=== PATIENT | male | born 1970 ===

== ENCOUNTER 2022-04-19 15:53 | Inpatient (IN) ==
[2022-04-19] MEDS ORDERED: LEVALBUTEROL 1.25 MG/3 ML NEB RESP TX ONE (15:56)
[2022-04-19] MEDS ORDERED: LEVOFLOXACIN 750 MG TABLET PO STA (15:57)
[2022-04-19] MEDS ORDERED: MAGNESIUM SULF RIDER 2 GM/50 ML PREMIX IV STA (15:57)
[2022-04-19] MEDS ORDERED: methylPREDNISolone SOD SUC 125 MG/2 ML VIAL IV STA (15:57)
[2022-04-19] MEDS ORDERED: ALBUTEROL NEB SOLN 5 MG/ML 20 ML/BOTTLE CONT NEB SCH (16:00)
[2022-04-19 16:03] LABS: Basophils % 0.2 % (0.0-0.8); Eosinophils # 0.1 10*3/uL (0.0-0.87); Eosinophils % 0.3 % (0.00-10.9); Hematocrit 47.2 VOL% (42.0-52.0); Hemoglobin 16.7 GM/DL (14.0-18.0); Immature Granulocytes % 0.6 %; Immature Granulocytes Absolute 0.11 #; Lymphocytes # 6.6 10*3/uL (1.4-4.0); Lymphocytes % 35.6 % (21.2-54.2); Mean Corpuscular HGB Conc 35.4 GM/DL (32-36); Mean Corpuscular Volume 89.1 FL (87-102); Monocytes # 1.4 10*3/uL (0.11-0.8); Monocytes % 7.6 % (1.7-12.7); Neutrophils % 55.7 % (38.7-73.9); Platelet Count 204 T/CUMM (130-400); Red Cell Distribution Width 12.5 % (9.3-17.3); White Blood Count 18.6 T/CUMM (4-12)
[2022-04-19] MEDS ORDERED: ALBUTEROL 2.5 MG/3 ML NEB RESP TX ONE (16:10)
[2022-04-19 16:25] LABS: Arterial Base Excess iSTAT -1 MMOL/L (-2.5-2.5); Arterial Bicarbonate iSTAT 24.1 MMOL/L (20-26); Arterial O2 Saturation iSTAT 100 % (95-100); Arterial PCO2 iSTAT 42 MM HG (35-48); Arterial PO2 iSTAT 201 MM HG (80-95); Arterial Total CO2 iSTAT 25 MMO/L (23-27); Arterial pH iSTAT 7.365 (7.35-7.45)
[2022-04-19 16:25] LABS: Albumin 4.1 G/DL (3.4-5.0); Bilirubin,Total 0.5 MG/DL (0.20-1.00); Osmolality,Calculated 282.3 MOS/KG (273-304); Potassium 4.2 MMOL/L (3.5-5.1); Total Protein 8.1 G/DL (6.4-8.2)
[2022-04-19 16:28] LABS: Band Neutrophils 1 % (0-10); Lymphocytes 39 % (20-55); Total Cells Counted 100
[2022-04-19 16:29] LABS: Atypical Lymphocytes Few; Platelet Estimate Normal
[2022-04-19] MEDS ORDERED: LEVALBUTEROL 0.63 MG/3 ML NEB RESP TX STA (16:48)
[2022-04-19] MEDS ORDERED: ONDANSETRON 4 MG/2 ML VIAL IV PRN (17:40)
[2022-04-19] MEDS ORDERED: ALBUTEROL 2.5 MG/3 ML NEB RESP TX PRN (17:40)
[2022-04-19] MEDS ORDERED: PANTOPRAZOLE 40 MG VIAL IV SCH (18:00)
[2022-04-19] MEDS: ALBUTEROL/IPRATROPIUM 3 ML NEB RESP TX SCH ×2 (19:09→22:33)
[2022-04-19 20:03] LABS: Barbiturates Screen,Urine Negative (Negative); Benzodiazepines Screen,Urine Negative (Negative); Cannabinoid Screen,Urine Negative (Negative); Opiate Screen,Urine Negative (Negative); Phencyclidine Screen,Urine Negative (Negative)
[2022-04-19 20:39] VITALS: BP 140/87
[2022-04-19] MEDS ORDERED: cefTRIAXone 1,000 MG in SODIUM CHLORIDE 0.9% 100 ML IV SCH (21:00)
[2022-04-19] MEDS: methylPREDNISolone SOD SUC 40 MG/1 ML VIAL IV SCH (23:31)
[2022-04-20] MEDS: ALBUTEROL/IPRATROPIUM 3 ML NEB RESP TX SCH ×3 (02:24→11:08)
[2022-04-20 05:19] LABS: Albumin 3.8 G/DL (3.4-5.0); Bilirubin,Total 0.4 MG/DL (0.20-1.00); Calcium 9.4 MG/DL (8.5-10.1); Osmolality,Calculated 281.5 MOS/KG (273-304); Potassium 4.2 MMOL/L (3.5-5.1); Thyroid Stimulating Hormone 0.412 uIU/ml (0.358-3.74); Total Protein 7.4 G/DL (6.4-8.2)
[2022-04-20] MEDS: methylPREDNISolone SOD SUC 40 MG/1 ML VIAL IV SCH ×2 (05:26→12:03)
[2022-04-20 05:29] LABS: Arterial Base Excess iSTAT -2 MMOL/L (-2.5-2.5); Arterial Bicarbonate iSTAT 21.8 MMOL/L (20-26); Arterial O2 Saturation iSTAT 97 % (95-100); Arterial PCO2 iSTAT 35 MM HG (35-48); Arterial PO2 iSTAT 86 MM HG (80-95); Arterial Total CO2 iSTAT 23 MMO/L (23-27); Arterial pH iSTAT 7.398 (7.35-7.45)
[2022-04-20] MEDS ORDERED: CETIRIZINE 10 MG TABLET PO SCH (09:00)
[2022-04-20] MEDS ORDERED: CHOLECALCIFEROL 1,000 UNIT TABLET PO SCH (09:00)
[2022-04-20] MEDS ORDERED: hydroCHLOROthiazide 12.5 MG CAPSULE PO SCH (09:00)
[2022-04-20] MEDS ORDERED: FENOFIBRATE 145 MG TABLET PO SCH (09:00)
[2022-04-20] MEDS ORDERED: ASPIRIN EC 81 MG TABLET PO SCH (09:00)
[2022-04-20] MEDS ORDERED: BUDESONIDE/FORMOTEROL 160-4.5 INHALER 6 GM INH SCH (12:00)
== END 2022-04-20 13:18 | disposition home or self-care (01) | DRG 202 ==
LOC: EDBD → EDUNIT# → N.ED 15:53 → N.EDINP 17:31 → N.CC 19:56
PROVIDERS: ADMIT Internal Medicine; ATTEND Internal Medicine